=== PATIENT | male | born 1975 | race Caucasian/White ===

== ENCOUNTER 2018-01-18 12:51 | Emergency (ER) | payer OTHER ==
[~2018-01-18] VITALS: Ht 193 cm; Wt 141.5 kg
[2018-01-18] MEDS ORDERED: NAPROXEN 500 MG TABLET PO STA (13:23)
[2018-01-18] MEDS ORDERED: diazePAM 5 MG TABLET PO ONE (13:30)
[2018-01-18] MEDS ORDERED: oxyCODONE/APAP 5/325 1 TAB TABLET PO ONE (13:30)
[2018-01-18] MEDS ORDERED: oxyCODONE/APAP 5/325 1 TAB TABLET ONE (13:35)
[2018-01-18] MEDS ORDERED: NAPROXEN 500 MG TABLET ONE (13:35)
--- NOTE | 2018-01-18 13:49 | PHYS DOC ---
Adult General Chief Complaint Chief Complaint: SHOULDER INJURY HPI HPI Patient is a 42 year old male who presents with 10 out of 10 throbbing constant left shoulder pain that began this morning after he lifted something heavy. He states he lifted a couch. Patient states the pain is worse on raising the shoulder. He has not taken anything for pain. He states hydrocodone does not do anything for him. Review of Systems Review of Systems Constitutional: Denies fever or chills [] Musculoskeletal: Left shoulder with no obvious deformity. Limited abduction of the shoulder due to pain. Diffuse tenderness throughout the trapezium area. Full range of motion to the left forearm. Adequate radial, medial, ulnar sensation to the left upper extremity. +2 left radial pulse. Cap refill less than 2 seconds the left fingers. Integument: Denies rash or skin lesions [] Neurologic: Denies headache, focal weakness or sensory changes [] All other systems were reviewed and found to be within normal limits, except as documented in this note. Current Medications Current Medications Current Medications Medications (Trade) Dose Ordered Sig/Fanny Start Time Stop Time Status Last Admin Dose Admin Diazepam (Valium) 5 mg 1X ONCE 01/18/18 13:30 01/18/18 13:35 DC 01/18/18 13:39 5 MG Naproxen (Naprosyn) 500 mg STK-MED ONCE 01/18/18 13:35 01/18/18 13:36 DC Oxycodone/ Acetaminophen (Percocet 5/325) 1 tab STK-MED ONCE 01/18/18 13:35 01/18/18 13:36 DC Allergies Allergies Allergies Coded Allergies Type Severity Reaction Last Updated Verified No Known Drug Allergies 01/18/18 No Physical Exam Physical Exam Constitutional: Well developed, well nourished, no acute distress, non-toxic appearance. [] HENT: Normocephalic, atraumatic, bilateral external ears normal, oropharynx moist, no oral exudates, nose normal. [] Eyes: PERRLA, EOMI, conjunctiva normal, no discharge. [] Neck: Normal range of motion, no tenderness, supple, no stridor. [] Cardiovascular:Heart rate regular rhythm, no murmur [] Lungs & Thorax: Bilateral breath sounds clear to auscultation [] Abdomen: Bowel sounds normal, soft, no tenderness, no masses, no pulsatile masses. [] Skin: Warm, dry, no erythema, no rash. [] Back: No tenderness, no CVA tenderness. [] Extremities: No tenderness, no cyanosis, no clubbing, ROM intact, no edema. [] Neurologic: Alert and oriented X 3, normal motor function, normal sensory function, no focal deficits noted. [] Psychologic: Affect normal, judgement normal, mood normal. [] Current Patient Data Vital Signs Vital Signs Date Time Temp Pulse Resp B/P (MAP) Pulse Ox O2 Delivery O2 Flow Rate FiO2 01/18/18 13:40 16 99 Room Air 01/18/18 13:14 98.6 86 138/87 (104) 98.6 EKG EKG [] Radiology/Procedures Radiology/Procedures []PROCEDURE: SHOULDER 2+V LEFT Left SHOULDER , 3 VIEWS Clinical Indication: LT SHOULDER PAIN, after lifting at home. Comparison: None. Findings: Underpenetration limits evaluation. There is no acute fracture or dislocation. The acromioclavicular and glenohumeral joints are intact. The visualized lung is clear. There is no evidence of a displaced rib fracture. There is no soft tissue abnormality. IMPRESSION: No acute fracture or dislocation. Electronically signed by: Chiki Carter MD (01/18/2018 4:12 PM) [id number] DICTATED and SIGNED BY: CHIKI CARTER MD DATE: 01/18/18 1611 Course & Med Decision Making Course & Med Decision Making Pertinent Labs and Imaging studies reviewed. (See chart for details) This is a 42-year-old male patient presenting to the ED today with left shoulder pain after lifting something heavy. Left shoulder x-rays interpreted by radiologist are negative for any acute findings, discharged with cyclobenzaprine, diclofenac and Medrol Dosepak. Follow-up with PCP or the provided orthopedic doctor in one week. Ice elevation encouraged. Dragon Disclaimer Dragon Disclaimer This electronic medical record was generated, in whole or in part, using a voice recognition dictation system. Departure Departure Impression: Primary Impression: Left shoulder strain Disposition: 01 HOME, SELF-CARE Condition: STABLE Referrals: JAZMINE COSTA MD follow up in one week Patient Instructions: Muscle Strain, [id number] Additional Instructions: You were evaluated in the emergency room for shoulder strain. Ice elevate the extremity. Follow-up with your own doctor or the provided orthopedic doctor in one week if pain continues. Take the prescribed medications as ordered. Scripts Diclofenac Sodium (DICLOFENAC SODIUM) 50 Mg Tablet.dr 1 TAB PO BID, #30 TAB 0 Refills Prov: ZORAIDA LARA APRN 01/18/18 Cyclobenzaprine Hcl (CYCLOBENZAPRINE HCL) 10 Mg Tablet 1 TAB PO TID, #30 TAB Prov: ZORAIDA LARA APRN 01/18/18 Methylprednisolone (MEDROL) 4 Mg Tab.ds.pk 1 PKG PO UD, #1 PKG Prov: ZORAIDA LARA APRN 01/18/18 Problem Qualifiers Primary Impression: Left shoulder strain Encounter type: initial encounter Qualified Codes: S46.912A - Strain of unspecified muscle, fascia and tendon at shoulder and upper arm level, left arm , initial encounter ZORAIDA LARA APRN Jan 18, 2018 13:49
--- NOTE | 2018-01-18 16:15 | RAD ---
Left SHOULDER , 3 VIEWS Clinical Indication: LT SHOULDER PAIN, after lifting at home. Comparison: None. Findings: Underpenetration limits evaluation. There is no acute fracture or dislocation. The acromioclavicular and glenohumeral joints are intact. The visualized lung is clear. There is no evidence of a displaced rib fracture. There is no soft tissue abnormality. IMPRESSION: No acute fracture or dislocation. Electronically signed by: Chiki Andujar MD (01/18/2018 4:12 PM) [id number]
[2018-01-18] MEDS ORDERED: DICL50TA4 PO (16:25)
[2018-01-18] MEDS ORDERED: METH4TAB2 PO (16:25)
[2018-01-18] MEDS ORDERED: CYCL10TA2 PO (16:25)
[2018-01-18 16:45] VITALS: BP 168/58
== END 2018-01-18 16:50 | disposition home or self-care (01) ==
LOC: EDBD 12:51 → ER 12:51
DX: S46.912A Strain of unspecified muscle, fascia and tendon at shoulder and upper arm level, left arm, initial encounter (principal); X50.0XXA Overexertion from strenuous movement or load, initial encounter; Y93.89 Activity, other specified; Y92.89 Other specified places as the place of occurrence of the external cause; Y99.8 Other external cause status
CPT/HCPCS: 73030; 99284